=== PATIENT | female | born 2000 | race Two or more races ===

== ENCOUNTER 2024-08-05 11:09 | Outpatient (CLI) | payer MEDICAID, SELFPAY ==
[2024-08-05] VITALS (10 sets, daily range): BP systolic 124–141; BP diastolic 81–91; PULSE 75–87; RESP 18–98; TEMP 36.7; O2SAT 98; BMI 41.0
[2024-08-05 11:34] LABS: Collection Type, Urine Clean Catch
[2024-08-05 11:43] LABS: Bacteria,Urine Rare; Bilirubin,Urine Negative (Negative); Blood,Urine Trace (Negative); Clarity,Urine Clear (Clear/Hazy); Color,Urine Yellow (Lt Yel-Yel); Glucose, Urine Negative (Negative); Ketones,Urine Negative (Negative); Leukocyte Esterase,Urine Positive (Negative); Nitrite,Urine Negative (Negative); Protein,Urine 1+ (Neg - Trace); RBC,Urine 6 /hpf (0-3); Specific Gravity,Urine 1.023 (1.001-1.035); Squamous Epithelial Cell,Urine 6 /hpf (0-5); Urobilinogen,Urine Negative mg/dL (0.0-1.0); WBC,Urine 6 /hpf (0-5)
[2024-08-05 11:57] LABS: Creatinine,Random Urine 120 mg/dL (30-125); Protein Total, Random Urine 105 mg/dL (1-14)
[2024-08-05 12:07] LABS: Basophils % (Auto) 1 % (0-2.5); Eosinophils % (Auto) 0 % (0-10); Hematocrit 28.3 % (36.0-46.0); Immature Granulocytes % (Auto) 0 % (0-0); Immature Granulocytes Auto 0.03 Thou/mm3 (0.00-0.00); Lymphocytes # (Auto) 2.5 Thou/mm3 (1.0-4.8); Lymphocytes % (Auto) 31 % (10-50); Mean Corpuscular HGB Conc 30.7 g/dl (31.0-37.0); Mean Corpuscular Volume 65 fL (80-100); Monocytes # (Auto) 0.5 Thou/mm3 (0.0-0.8); Monocytes % (Auto) 6 % (0-12); Neutrophils # (Auto) 5.1 Thou/mm3 (1.8-7.7); Neutrophils % (Auto) 63 % (37-80); Nucleated Red Blood Cell % 0 /100 WBC (0); Platelet Count 221 Thou/mm3 (140-440); RDW Standard Deviation 41.2 fL (36.4-46.3); Red Blood Count 4.34 Miln/mm3 (4.00-5.20); White Blood Count 8.1 Thou/mm3 (3.6-11.0)
[2024-08-05 12:08] LABS: Hemoglobin 8.7 g/dL (12.0-16.0)
[2024-08-05 12:35] LABS: Alanine Aminotransferase < 7 U/L (10-49); Albumin, Serum 3.4 gm/dL (3.5-5.0); Albumin/Globulin Ratio 1.4 (1.2-2.2); Alkaline Phosphatase 236 U/L (46-116); Anion Gap 6 (7-16); Aspartate Amino Transferase 14 U/L (0-34); BUN/Creatinine Ratio 13 Ratio (12-20); Bilirubin,Total 0.2 mg/dL (0.3-1.2); Blood Urea Nitrogen 8 mg/dL (9-23); Calcium 8.8 mg/dL (8.3-10.6); Calcium (Corrected) 9.3 mg/dL (8.5-10.1); Carbon Dioxide 22.6 mMol/L (20.0-31.0); Chloride 108 mMol/L (98-107); Creatinine (Component) 0.6 mg/dL (0.6-1.3); Estimated Creatinine Clearance 155.3 mL/min (>60); Globulin 2.5 gm/dL (2.3-3.5); Glucose 79 mg/dL (74-106); LDH (Lactate Dehydrogenase) 188 U/L (120-246); Osmolality,Calculated 271 (275-295); Potassium 4.1 mMol/L (3.4-5.1); Sodium 137 mMol/L (136-145); Total Protein 5.9 gm/dL (5.7-8.2); Uric Acid 5.8 mg/dL (3.1-7.8); eGFR > 60 See Note
[2024-08-05 12:58] LABS: Fibrinogen 470 mg/dL (175-375); INR 0.9 (0.9-1.3); Partial Thromboplastin Time 24.2 Seconds (22.0-36.0); Prothrombin Time 9.5 Seconds (9.0-12.2)
[2024-08-05 13:54] LABS: Path Review Blood Smear Sent to Pathologist
--- NOTE | 2024-08-05 17:11 | PD.LDPN ---
Documentation for date of: 08/05/24 OB Labor Progress Note Status status: Category l Assessment and Plan Comments: Renee is a 24yo with SIUP at 36&6wk presenting to L&D from clinic for PIH workup. She had mild range bp noted in clinic and this was first occasion in . No painful/regular ctx, no vaginal bleeding, no lof. Normal movement. She denies headache, vision changes and RUQ pain. Current : This has been uncomplicated, she has had regular OB care with her OBGYN Previous pregnancies: history of pre-eclampsia and section last . She is taking ASA 81mg PO QD. ROS negative other than what was described above. BP's: first bp (done over sweatshirt) mild range 141/91 but then 6 more bp's after that all normal 120's-130's/80's, afebrile General: well developed, well nourished, no acute distress, conversant Cardiac: normal heart rate Lungs: breathing without distress Abdomen: soft, gravid, non-tender, no rebound or guarding NST: Reactive, +accels, no decels, mod juice [place]: no regular ctx pattern Labs: Hgb 8.7 Plt 221 serum creat 0.6 AST/ALT wnl urine prot:creat 0.88 Assessment: Renee is a 24yo with SIUP at 36&6wk with no confirmed diagnosis of GHTN or pre-eclampsia at this time, given that today is first occasion of mild range bp (and all subsequent bp's normal). She has proteinuria and anemia noted with Hgb 8.7. Reassuring status. Plan: -Patient to follow up on 08/07 in triage for bp check. If she has mild range bp's at that time, she would then rule in for pre-eclampsia without severe features and since she will be 37wk, delivery would be indicated. -Return precautions: especially for persistent headache, vision changes and RUQ pain Nydia Ballard MD
== END 2024-08-05 12:55 | disposition home or self-care (01) ==
LOC: S4S1 11:14 → S4SX 11:15
PROVIDERS: Referring Provider Obstetrics & Gynecology; Visit Provider Obstetrics & Gynecology
DX: O26.893 Other specified pregnancy related conditions, third trimester (principal); R03.0 Elevated blood-pressure reading, without diagnosis of hypertension; O99.013 Anemia complicating pregnancy, third trimester; D64.9 Anemia, unspecified; O12.13 Gestational proteinuria, third trimester; Z3A.36 36 weeks gestation of pregnancy
CPT/HCPCS: 36415; 59025; 80053; 81001; 82570; 83615; 84156; 84550; 85025; 85384; 85610; 85730

== ENCOUNTER 2024-08-07 12:09 | Outpatient (CLI) | payer MEDICAID, SELFPAY ==
[2024-08-07] VITALS (7 sets, daily range): BP systolic 118–132; BP diastolic 78–85; PULSE 81–90; RESP 17–99; TEMP 36.8; BMI 40.8
== END 2024-08-07 13:30 | disposition home or self-care (01) ==
LOC: S4S1 12:10 → S4SX 12:11
PROVIDERS: PCP Obstetrics & Gynecology; Referring Provider Obstetrics & Gynecology; Visit Provider Obstetrics & Gynecology
DX: Z34.83 Encounter for supervision of other normal pregnancy, third trimester (principal); Z3A.37 37 weeks gestation of pregnancy
CPT/HCPCS: 59025

== ENCOUNTER 2024-08-12 14:51 | Outpatient (CLI) | payer MEDICAID, SELFPAY ==
[2024-08-12] VITALS (8 sets, daily range): BP systolic 136–160; BP diastolic 89–95; PULSE 75–96; RESP 17–98; TEMP 36.8
[2024-08-12] MEDS: RINGERS LACTATED 1000 ML 1,000 ML 999 ML IV (15:41)
[2024-08-12 15:47] LABS: Collection Type, Urine Clean Catch
[2024-08-12 15:59] LABS: Bilirubin,Urine Negative (Negative); Blood,Urine Trace (Negative); Clarity,Urine Turbid (Clear/Hazy); Color,Urine Yellow (Lt Yel-Yel); Glucose, Urine Negative (Negative); Ketones,Urine Negative (Negative); Leukocyte Esterase,Urine Positive (Negative); Nitrite,Urine Negative (Negative); Protein,Urine 2+ (Neg - Trace); RBC,Urine 44 /hpf (0-3); Specific Gravity,Urine 1.027 (1.001-1.035); Squamous Epithelial Cell,Urine 15 /hpf (0-5); Urobilinogen,Urine Negative mg/dL (0.0-1.0); WBC,Urine 63 /hpf (0-5)
[2024-08-12 16:15] LABS: Creatinine,Random Urine 154 mg/dL (30-125); Protein Total, Random Urine 242 mg/dL (1-14)
[2024-08-12 16:25] LABS: Fibrinogen 116 mg/dL (175-375); Partial Thromboplastin Time 20.5 Seconds (22.0-36.0); Prothrombin Time 11.2 Seconds (9.0-12.2)
[2024-08-12 16:31] LABS: Alanine Aminotransferase 11 U/L (10-49); Albumin, Serum 3.7 gm/dL (3.5-5.0); Albumin/Globulin Ratio 1.4 (1.2-2.2); Alkaline Phosphatase 243 U/L (46-116); Anion Gap 11 (7-16); Aspartate Amino Transferase 24 U/L (0-34); BUN/Creatinine Ratio 14 Ratio (12-20); Bilirubin,Total 0.3 mg/dL (0.3-1.2); Blood Urea Nitrogen 10 mg/dL (9-23); Calcium (Corrected) 9.2 mg/dL (8.5-10.1); Chloride 105 mMol/L (98-107); Creatinine (Component) 0.7 mg/dL (0.6-1.3); Globulin 2.6 gm/dL (2.3-3.5); Glucose 65 mg/dL (74-106); Osmolality,Calculated 270 (275-295); Potassium 4.2 mMol/L (3.4-5.1); Sodium 137 mMol/L (136-145); Total Protein 6.3 gm/dL (5.7-8.2); Uric Acid 6.5 mg/dL (3.1-7.8); eGFR > 60 See Note
[2024-08-12 16:48] LABS: Basophils # (Auto) 0.1 Thou/mm3 (0.0-0.2); Basophils % (Auto) 1 % (0-2.5); Eosinophils % (Auto) 0 % (0-10); Immature Granulocytes % (Auto) 1 % (0-0); Immature Granulocytes Auto 0.05 Thou/mm3 (0.00-0.00); Lymphocytes # (Auto) 2.3 Thou/mm3 (1.0-4.8); Lymphocytes % (Auto) 25 % (10-50); Mean Corpuscular HGB Conc 30.7 g/dl (31.0-37.0); Mean Corpuscular Hemoglobin 19.8 pg (25.0-35.0); Mean Corpuscular Volume 64 fL (80-100); Monocytes # (Auto) 0.5 Thou/mm3 (0.0-0.8); Monocytes % (Auto) 6 % (0-12); Neutrophils # (Auto) 6.2 Thou/mm3 (1.8-7.7); Neutrophils % (Auto) 68 % (37-80); Nucleated Red Blood Cell % 0 /100 WBC (0); Platelet Count 245 Thou/mm3 (140-440); RDW Standard Deviation 40.2 fL (36.4-46.3); Red Blood Count 4.35 Miln/mm3 (4.00-5.20); White Blood Count 9.2 Thou/mm3 (3.6-11.0)
[2024-08-12 16:55] LABS: Hemoglobin 8.6 g/dL (12.0-16.0)
--- NOTE | 2024-08-12 17:28 | PD.EVENT ---
Documentation for date of: 08/12/24 Event Note Event Note: Patient was sent over from clinic by Dr. Ladd for elevated blood pressures in clinic, rule out preeclampsia. In labor and delivery her blood pressures were largely 130s to 140s over 80s to low 90s. All PIH labs were normal. Patient had 2+ protein in her urine but also a lot of red cells and white cells. She denied headaches scotomata or right upper quadrant pain or any other signs of preeclampsia. Patient is 37-6/7 weeks . heart tones were reactive and category 1 tracing. The plan was to send the patient home to return to triage in 2 days for repeat NST and blood pressure check. She has a scheduled 10 days from now on 08/22/2024. She was given strict preeclampsia precautions before discharge by the OB finished cigar maker. All labs, heart tracing, and vital signs were reviewed by myself.
[2024-08-12 17:44] LABS: Fibrinogen 470 mg/dL (175-375); INR 0.9 (0.9-1.3); Partial Thromboplastin Time 24.4 Seconds (22.0-36.0); Prothrombin Time 9.6 Seconds (9.0-12.2)
== END 2024-08-12 17:30 | disposition home or self-care (01) ==
LOC: S4S1 14:52 → S4SX 14:52
PROVIDERS: Referring Provider Obstetrics & Gynecology; Visit Provider Obstetrics & Gynecology
DX: Z34.83 Encounter for supervision of other normal pregnancy, third trimester (principal); Z36.89 Encounter for other specified antenatal screening; Z3A.37 37 weeks gestation of pregnancy
CPT/HCPCS: 36415; 80053; 81001; 82570; 84156; 84550; 85025; 85384; 85610; 85730; J7120

== ENCOUNTER 2024-08-14 11:09 | Inpatient (IN) | payer MEDICAID, SELFPAY ==
[2024-08-14] VITALS (71 sets, daily range): BP systolic 112–180; BP diastolic 82–111; PULSE 68–105; RESP 13–22; TEMP 36.4–37.2; O2SAT 95–100; BMI 41.0
[2024-08-14 13:08] LABS: Collection Type, Urine Clean Catch
--- NOTE | 2024-08-14 13:08 | PD.LDHP ---
Documentation for date of: 08/14/24 OB Labor/Induct. HPI History of Present Illness : 3 Term pregnancies: 1 pregnancies: 0 Living children: 1 History of Abortions: Spontaneous and Elective: 1 History of sections: Yes History of : No History of present illness: 24 y/o @ 38w1d, here for a repeat low-transverse for preeclampsia without severe features. Patient was seen on the in the clinic where she was found to have elevated blood pressure and was sent to L&D for possible . The on-call provider was informed. However patient was not delivered as preeclampsia labs were within normal limits and the patient was asymptomatic. Of note patient was also sent a week prior for preeclampsia evaluation for elevated blood pressure. I had a discussion with the patient today detailing the necessity to be delivered at 37 weeks or beyond on her diagnosis of preeclampsia without severe features. Patient has a history of preeclampsia in her previous delivery and was delivered at 37. Today patient is asymptomatic as per headaches, blurry vision, epigastric pain. History of Present Dating criteria: LMP confirmed by 1st trimester US Labs Narrative: NIPT within normal limits Glucose tolerance test normal Preeclampsia labs within normal limit proteinuria exists random total urine protein 334 Past Medical History Surgical History SURGICAL: Positive Section Meds Home Medications and Allergies Home Medications ?Medication ?Instructions ?Recorded ?Confirmed ?Type aspirin 81 mg capsule 81 mg PO QDAY 08/05/24 08/12/24 History vits no.126-ferrous fum 1 tab PO 1XD 08/05/24 08/12/24 History 28 mg iron-folic acid 800 mcg tablet (Classic ) Allergies Allergy/AdvReac Type Severity Reaction Status Date / Time No Known Allergies Allergy Verified 08/14/24 15:52 OB Exam Physical Exam Vital signs: Pulse BP Pulse Ox 70 145/95 H 99 08/14/24 13:05 08/14/24 13:05 08/14/24 13:04 Constitutional Constitutional: no acute distress Routine HEENT Exam Head: Present normocephalic and atraumatic Eye: Present EOMI and PERRL ENT: Present mucous membranes moist Routine Neck Exam Neck: Present supple and trachea midline Routine Cardiovascular Exam Cardiovascular: Present RRR Routine Abdominal Exam Abdominal: Present soft and normoactive bowel sounds Detailed Labor and Delivery Exam Comments: Category 1 heart tone Occasional contractions Routine Extremities Exam Extremities: Present full ROM Routine Skin Exam Skin: Present intact, dry and warm Routine Neurological Exam Neurological: Present alert, oriented X3 and CN II-XII intact Routine Psychiatric Exam Psychiatric: Present normal affect and normal thought process OB Results Labs 08/14/24 11:22 08/14/24 11:22 Impressions Impression: 24-year-old 3 para 1-0-1-1 at 38 weeks and 1 day admitted for repeat low-transverse Preeclampsia with without severe features Blood pressure earlier this week elevated, blood pressure today elevated in mild ranges GTT within normal limits Previous x 1 for preeclampsia at 37 weeks Anatomy within normal, breech presentation, posterior placenta no previa OB Assessment & Plan Additional Plan Additional Plan Comment: Repeat low-transverse Hemoglobin starting is 9, 1 unit of blood transfusion ordered preop Preeclampsia without severe features, Methergine will be avoided in case of hemorrhage Antibiotic prophylaxis DVT prophylaxis
[2024-08-14 13:12] LABS: Basophils # (Auto) 0.1 Thou/mm3 (0.0-0.2); Basophils % (Auto) 1 % (0-2.5); Eosinophils % (Auto) 0 % (0-10); Hematocrit 29.4 % (36.0-46.0); Immature Granulocytes % (Auto) 1 % (0-0); Immature Granulocytes Auto 0.04 Thou/mm3 (0.00-0.00); Lymphocytes # (Auto) 2.2 Thou/mm3 (1.0-4.8); Lymphocytes % (Auto) 28 % (10-50); Mean Corpuscular HGB Conc 30.6 g/dl (31.0-37.0); Mean Corpuscular Hemoglobin 19.6 pg (25.0-35.0); Mean Corpuscular Volume 64 fL (80-100); Monocytes # (Auto) 0.4 Thou/mm3 (0.0-0.8); Monocytes % (Auto) 5 % (0-12); Neutrophils # (Auto) 5.2 Thou/mm3 (1.8-7.7); Neutrophils % (Auto) 66 % (37-80); Nucleated Red Blood Cell % 0 /100 WBC (0); Platelet Count 245 Thou/mm3 (140-440); RDW Standard Deviation 39.8 fL (36.4-46.3); White Blood Count 7.8 Thou/mm3 (3.6-11.0)
[2024-08-14 13:19] LABS: Bilirubin,Urine Negative (Negative); Blood,Urine 1+ (Negative); Clarity,Urine Turbid (Clear/Hazy); Color,Urine Yellow (Lt Yel-Yel); Glucose, Urine Negative (Negative); Ketones,Urine Negative (Negative); Leukocyte Esterase,Urine Positive (Negative); Nitrite,Urine Negative (Negative); PH,Urine 6.5 (5.0-7.0); Protein,Urine 3+ (Neg - Trace); RBC,Urine 183 /hpf (0-3); Specific Gravity,Urine 1.024 (1.001-1.035); Squamous Epithelial Cell,Urine 8 /hpf (0-5); Urobilinogen,Urine Negative mg/dL (0.0-1.0); WBC,Urine 31 /hpf (0-5)
[2024-08-14 13:22] LABS: Creatinine,Random Urine 205 mg/dL (30-125)
[2024-08-14 13:25] LABS: Protein Total, Random Urine 334 mg/dL (1-14)
[2024-08-14 13:41] LABS: Fibrinogen 455 mg/dL (175-375); INR 0.9 (0.9-1.3); Partial Thromboplastin Time 24.1 Seconds (22.0-36.0); Prothrombin Time 9.8 Seconds (9.0-12.2)
[2024-08-14 13:42] LABS: Alanine Aminotransferase 12 U/L (10-49); Albumin, Serum 3.6 gm/dL (3.5-5.0); Albumin/Globulin Ratio 1.5 (1.2-2.2); Alkaline Phosphatase 236 U/L (46-116); Anion Gap 9 (7-16); Aspartate Amino Transferase 17 U/L (0-34); BUN/Creatinine Ratio 15 Ratio (12-20); Bilirubin,Total 0.3 mg/dL (0.3-1.2); Blood Urea Nitrogen 9 mg/dL (9-23); Calcium 8.4 mg/dL (8.3-10.6); Calcium (Corrected) 8.7 mg/dL (8.5-10.1); Carbon Dioxide 21.8 mMol/L (20.0-31.0); Chloride 106 mMol/L (98-107); Creatinine (Component) 0.6 mg/dL (0.6-1.3); Estimated Creatinine Clearance 155.3 mL/min (>60); Globulin 2.4 gm/dL (2.3-3.5); Glucose 67 mg/dL (74-106); Osmolality,Calculated 270 (275-295); Sodium 137 mMol/L (136-145); Uric Acid 6.8 mg/dL (3.1-7.8); eGFR > 60 See Note
[2024-08-14] MEDS: RINGERS LACTATED 1000 ML 1,000 ML 100 ML IV (13:42)
[2024-08-14 13:49] LABS: Syphilis Nonreactive (Nonreactive)
[2024-08-14] MEDS: FAMOTIDINE INJ 10 MG/ML VIAL 2 ML 20 MG IV (15:28)
[2024-08-14] MEDS: CITRIC ACID/SODIUM CITR 15 ML UDC (BICITRA) 30 ML PO (15:28)
[2024-08-14] MEDS: ceFAZolin/D5W 2 GM IV 2 GM/100 ML BAG IV (15:28)
[2024-08-14] MEDS: ONDANSETRON INJ 2 MG/ML INJ 2 ML 4 MG IV (18:33)
[2024-08-14] MEDS: OXYTOCIN in NS 20 units 20 UNIT/1,000 ML BAG 125 UNIT IV (20:45)
[2024-08-14 23:00] LABS: Basophils % (Auto) 0 % (0-2.5); Eosinophils % (Auto) 0 % (0-10); Hematocrit 36.3 % (36.0-46.0); Hemoglobin 11.3 g/dL (12.0-16.0); Immature Granulocytes % (Auto) 0 % (0-0); Immature Granulocytes Auto 0.06 Thou/mm3 (0.00-0.00); Lymphocytes # (Auto) 1.2 Thou/mm3 (1.0-4.8); Lymphocytes % (Auto) 8 % (10-50); Mean Corpuscular HGB Conc 31.1 g/dl (31.0-37.0); Mean Corpuscular Hemoglobin 20.7 pg (25.0-35.0); Mean Corpuscular Volume 67 fL (80-100); Monocytes # (Auto) 0.2 Thou/mm3 (0.0-0.8); Monocytes % (Auto) 2 % (0-12); Neutrophils % (Auto) 90 % (37-80); Nucleated Red Blood Cell % 0 /100 WBC (0); Platelet Count 221 Thou/mm3 (140-440); Red Blood Count 5.46 Miln/mm3 (4.00-5.20); White Blood Count 15.5 Thou/mm3 (3.6-11.0)
[2024-08-15 03:38] LABS: Path Review Blood Smear Sent to Pathologist
[2024-08-15 04:25] VITALS: BP 141/81; PULSE 76; RESP 18; TEMP 37.1; O2SAT 95
[2024-08-15 08:00] VITALS: BP 141/93; PULSE 88; RESP 18; TEMP 36.6; O2SAT 97
[2024-08-15 12:00] VITALS: BP 127/85; PULSE 84; RESP 18; TEMP 36.9; O2SAT 97
--- NOTE | 2024-08-15 12:37 | ESPR_ITS ---
Subjective Subjective Interval history: [place] is doing well, denied any vagianl bleeding , apin is wellcontroled , ad been ambulating , tolerating diet , no nausea vomitting. Exam Vital Signs Temp Pulse Resp BP Pulse Ox O2 Del Method 97.8 F 88 18 141/93 H 97 Room Air 08/15/24 08:00 08/15/24 08:00 08/15/24 08:00 08/15/24 08:00 08/15/24 08:00 08/15/24 08:00 Constitutional Constitutional: no acute distress Routine HEENT Exam Head: Present normocephalic and atraumatic Eye: Present EOMI and PERRL ENT: Present mucous membranes moist Routine Neck Exam Neck: Present supple and trachea midline Routine Respiratory Exam Respiratory: Present chest non-tender, lungs clear, normal breath sounds and no resp distress Routine Cardiovascular Exam Cardiovascular: Present RRR Routine Abdominal Exam Abdominal: Present soft and normoactive bowel sounds Routine Extremities Exam Extremities: Present full ROM Routine Skin Exam Skin: Present intact, dry and warm Routine Neurological Exam Neurological: Present alert, oriented X3 and CN II-XII intact Routine Psychiatric Exam Psychiatric: Present normal affect and normal thought process Objective Labs 08/14/24 22:22 08/14/24 11:22 Labs: Laboratory Results - last 24 hr 08/14/24 08/14/24 08/14/24 11:22 12:00 12:40 WBC 7.8 RBC 4.60 Hgb 9.0 L Hct 29.4 L MCV 64 L MCH 19.6 L MCHC 30.6 L RDW Std Deviation 39.8 Plt Count 245 Neut % (Auto) 66 Lymph % (Auto) 28 [place] % (Auto) 5 Eos % (Auto) 0 Baso % (Auto) 1 Neut # (Auto) 5.2 Lymph # (Auto) 2.2 [place] # (Auto) 0.4 Eos # (Auto) 0.0 Baso # (Auto) 0.1 Immature Gran # (Auto) 0.04 H Absolute Nucleated RBC 0.00 Immature Gran % 1 H Nucleated RBC % 0 Smear Path Review PT 9.8 INR 0.9 APTT 24.1 Fibrinogen 455 H Sodium 137 Potassium 4.0 Chloride 106 Carbon Dioxide 21.8 Anion Gap 9 BUN 9 Creatinine 0.6 Estim Creat Clear Calc 155.3 eGFR > 60 BUN/Creatinine Ratio 15 Glucose 67 L Calculated Osmolality 270 L Uric Acid 6.8 Calcium 8.4 Corrected Calcium 8.7 Total Bilirubin 0.3 AST 17 ALT 12 Alkaline Phosphatase 236 H Total Protein 6.0 Albumin 3.6 Globulin 2.4 Albumin/Globulin Ratio 1.5 Ur Collection Type Clean Catch Urine Color Yellow Urine Clarity Turbid A Urine pH 6.5 Ur Specific [place] 1.024 Urine Protein 3+ A Urine Glucose (UA) Negative Urine Ketones Negative Urine Blood 1+ A Urine Nitrite Negative Urine Bilirubin Negative Urine Urobilinogen (Auto) Negative Ur Leukocyte Esterase Positive Urine RBC 183 H Urine WBC 31 H Ur Squamous Epith Cells 8 H Urine Bacteria None Ur Random Creatinine 205 H U Random Total Protein 334 H Syphilis Serology Nonreactive Blood Type O Positive Antibody Screen NEGATIVE Crossmatch See Detail Blood Bank Wristband ID Yes 08/14/24 22:22 WBC 15.5 H D RBC 5.46 H Hgb 11.3 L D Hct 36.3 MCV 67 L MCH 20.7 L MCHC 31.1 RDW Std Deviation 47.0 H Plt Count 221 Neut % (Auto) 90 H Lymph % (Auto) 8 L [place] % (Auto) 2 Eos % (Auto) 0 Baso % (Auto) 0 Neut # (Auto) 14.0 H Lymph # (Auto) 1.2 [place] # (Auto) 0.2 Eos # (Auto) 0.0 Baso # (Auto) 0.0 Immature Gran # (Auto) 0.06 H Absolute Nucleated RBC 0.00 Immature Gran % 0 Nucleated RBC % 0 Smear Path Review Sent to Pathologist PT INR APTT Fibrinogen Sodium Potassium Chloride Carbon Dioxide Anion Gap BUN Creatinine Estim Creat Clear Calc eGFR BUN/Creatinine Ratio Glucose Calculated Osmolality Uric Acid Calcium Corrected Calcium Total Bilirubin AST ALT Alkaline Phosphatase Total Protein Albumin Globulin Albumin/Globulin Ratio Ur Collection Type Urine Color Urine Clarity Urine pH Ur Specific [place] Urine Protein Urine Glucose (UA) Urine Ketones Urine Blood Urine Nitrite Urine Bilirubin Urine Urobilinogen (Auto) Ur Leukocyte Esterase Urine RBC Urine WBC Ur Squamous Epith Cells Urine Bacteria Ur Random Creatinine U Random Total Protein Syphilis Serology Blood Type Antibody Screen Crossmatch Blood Bank Wristband ID Assessment & Plan Assessment Comment Assessment comment: 24 y/o p2, had a csection yesterday , POD #1 VSS Hb 11.3 > given 1 unit of PRBC for Preop Hb 9 All PO milestones met Plan Comment Plan Comment: cont PO care Time Spent With Patient Time: Total time spent is greater than 50% in coordination of care (as documented) at patient's floor/unit and/or counseling patient:
--- NOTE | 2024-08-15 12:40 | PD.LDDELS ---
Data (Smith) Data Hx Section: Yes : 3 Para: 1 Term: 1 : 0 : 1 Delivery Data (Smith) Labor Data ROM Date: 08/14/24 ROM Time: 16:22 Rupture Type: AROM Amniotic Fluid: Clear Delivery Data Labor Onset Stage 1 Date: 08/14/24 Labor Onset Stage 1 Time: 16:22 Labor Onset Stage 2 Date: 08/14/24 Labor Onset Stage 2 Time: 16:22 Delivery Date: 08/14/24 Delivery Time: 16:23 Gestational age (weeks): 38 Gestational age (days): 1 Placenta Delivery Date: 08/14/24 Placenta Delivery Time: 16:24 Delivered by: Mj Ladd Delivery nurse: Rola Davis Other staff at delivery: Nursery Nurse Other staff at delivery: Shwetha Kunz Delivery Method Delivery: Delivery Type: Repeat Anesthesia Type Primary Anesthesia: Spinal Placenta Placenta Delivery: Manual EBL Estimated blood loss (ml): 300 Complications Complications: none Data (Smith) Data Gender: Female Weight Grams: 2625 1 Minute Total: 9 5 Minute Total: 9
--- NOTE | 2024-08-15 12:41 | ESOP_ITS ---
Operative Note - GUIDE Procedure Date of procedure: 08/14/24 Procedure Performed: Repeat Low transverse C section Indication: preclampsia without severe features Previous Csection Pre-Op diagnosis: same Post-Op diagnosis: same Anesthesia type: Spinal Procedure description: Informed consent was obtained and the patient was taken to the operating room.? Identity was confirmed by double identifiers and she was placed on the operating table.The abdomen and perineum were prepped in the usual sterile fashion and a Perez catheter was placed to continuous drainage.? Sterile drapes were applied.??A Pfannenstiel skin incision was made with a scalpel and carried to the subcutaneous fat up to the rectus fascia.? The rectus fascia was incised on either side of the midline and the incisions were extended bilaterally.? The fascia was gently dissected off the ventral surface of the rectus muscle both superiorly and inferiorly. extensive adhesiolysis was done between musle , peritoneum. Carefully a peritioneal window created hysterotomy incision made and extended bluntly with finger. Rupture of membranes revealed clear fluid. The baby was found vertex presentation and was delivered via vertex. The umbilical cord , was doubly clamped, divided and the infant was handed over to the waiting team. The placenta delivered by controlled cord traction . The interior of the uterus was now thorougly cleaned of all blood and debris and membranes.?The? hysterotomy was closed using 0 vicryl suture in double layers. Once the repair was completed the hysterotomy was inspected, was noted to be adequately hemostatic. The rectus fascia was repaired using Vicryl 0 in a running fashion.? The subcutaneous layer was now, approximated with 3-0 vicryl in double layers.? All bleeding points were cauterized using the Bovie.?The skin was closed using 4-0 Monocryl in a subcuticular fashion.? The skin was cleaned and a sterile dressing was applied. The patient was now undraped, the abdomen and back were thoroughly cleaned and she was now transferred to the [facility] in a stable Estimated blood loss (ml): 300 Surgical staff Operation Date: 08/22/24 12:45 <No data on this case meets the specified criteria> Diagnosis Problem List Completed Was Problem List Reviewed/Reconciled?: Yes
[2024-08-15] MEDS: IBUPROFEN TAB 400 MG TABLET 800 MG PO (15:44)
[2024-08-15 16:00] VITALS: BP 130/91; PULSE 89; RESP 18; TEMP 36.9; O2SAT 98
[2024-08-15] MEDS: SIMETHICONE 80 MG CHEW PO (16:00)
[2024-08-15] MEDS: Milk Of Magnesia Susp 30 ML UDC PO (16:00)
--- NOTE | 2024-08-15 19:11 | PC.NURSE ---
08/15/24 1700 : RN Removed wound dressing. Wound is asymptomatic, clean/dry, open to air. Pt. educated on wound care.
[2024-08-15 19:15] VITALS: BP 135/87; PULSE 87; RESP 16; TEMP 36.7; O2SAT 98
--- NOTE | 2024-08-15 22:18 | PD.LDPPPRG ---
Subjective Subjective Interval history: POD#1 s/p repeat LTCS and also elevated BP during Exam Vital Signs Temp Pulse Resp BP Pulse Ox O2 Del Method 98.0 F 87 16 135/87 H 98 Room Air 08/15/24 19:15 08/15/24 19:15 08/15/24 19:15 08/15/24 19:15 08/15/24 19:15 08/15/24 19:15 Narrative Exam doing well\Passed flatus, breast feeding , good pain control, no dizziness , no complaints , bleeding is minimal , no headache Constitutional Constitutional: no acute distress Routine Respiratory Exam Respiratory: Present chest non-tender, lungs clear, normal breath sounds, no resp distress and CTA bilaterally Routine Cardiovascular Exam Cardiovascular: Present RRR Routine Abdominal Exam Abdominal: Present soft and normoactive bowel sounds Comments: incision is C, D and intact and appropriate tenderness , dressing clean and dry soft abdomen Routine Extremities Exam Extremities: Present full ROM and pulses intact Comments: no calf tenderness Routine Skin Exam Skin: Present intact and normal turgor Routine Neurological Exam Neurological: Present alert, oriented X3, CN II-XII intact, normal reflexes, moving all extremities and vision grossly intact Routine Psychiatric Exam Psychiatric: Present normal affect, normal thought process, cooperative, good insight and good judgment Objective Labs 08/14/24 22:22 08/14/24 11:22 Labs: Laboratory Results - last 24 hr 08/14/24 22:22 WBC 15.5 H D RBC 5.46 H Hgb 11.3 L D Hct 36.3 MCV 67 L MCH 20.7 L MCHC 31.1 RDW Std Deviation 47.0 H Plt Count 221 Neut % (Auto) 90 H Lymph % (Auto) 8 L [place] % (Auto) 2 Eos % (Auto) 0 Baso % (Auto) 0 Neut # (Auto) 14.0 H Lymph # (Auto) 1.2 [place] # (Auto) 0.2 Eos # (Auto) 0.0 Baso # (Auto) 0.0 Immature Gran # (Auto) 0.06 H Absolute Nucleated RBC 0.00 Immature Gran % 0 Nucleated RBC % 0 Smear Path Review Sent to Pathologist Impressions Impression: POD #1 doing well continue current management on regular diet Assessment & Plan Assessment Comment Assessment comment: POD #1 s/p repeat LTCS , doing well /care is appropriate / likely discharge in am Time Spent With Patient Time: Total time spent is greater than 50% in coordination of care (as documented) at patient's floor/unit and/or counseling patient:
[2024-08-15 23:30] VITALS: BP 142/90; BP 153/95; PULSE 84; RESP 16; TEMP 36.7; O2SAT 97
[2024-08-16 03:05] VITALS: BP 144/102; PULSE 78; RESP 16; TEMP 36.8; O2SAT 98
[2024-08-16] MEDS: IBUPROFEN TAB 400 MG TABLET 800 MG PO (03:53)
--- NOTE | 2024-08-16 07:45 | PD.LDPPPRG ---
Subjective Subjective Interval history: Patient is a 24-year-old G [id number] postop day #1 status post repeat by Dr. Ladd. Patient is resting comfortably in bed this morning. She denies headaches, right upper quadrant pain, or shortness of breath. She denies changes in vision. She is swollen. But thinks this is getting better. Her blood pressures have been elevated in the 140-150s 90-100. No meds. She states the last time they took it she was in pain. She denies any heavy vaginal bleeding. She is breast-feeding the baby is laying next to her in bed. The father the baby is asleep. Exam Vital Signs Temp Pulse Resp BP Pulse Ox O2 Del Method 98.3 F 78 16 144/102 H 98 Room Air 08/16/24 03:05 08/16/24 03:05 08/16/24 03:05 08/16/24 03:05 08/16/24 03:05 08/16/24 03:05 Narrative Exam Patient is alert and oriented x 3 wearing her own pajamas. Resting comfortably with make-up on. Abdomen soft nontender, nondistended ,fundus is firm. Incision is clean dry and intact. Extremities show 2+ edema. No erythema. Objective Labs 08/14/24 22:22 08/14/24 11:22 Impressions Impression: Patient preop hemoglobin was 8.6. A redraw six hours later was 9. On post op day #1 it was 11.2. Patient is getting more hemoconcentrated and has not been transfused. Assessment & Plan Problem List (1) Previous delivery, delivered: Problem details: Continue present management. Encourage ambulation. Encourage pain meds as needed. Status: Acute (2) Preeclampsia: Problem details: Recheck labs at this time. Ambulate to see what patient's blood pressures do. Consider Procardia as an antihypertensive medication. Status: Acute Time Spent With Patient Time: Total time spent is greater than 50% in coordination of care (as documented) at patient's floor/unit and/or counseling patient: Time with patient: less than 15 minutes
[2024-08-16 08:00] VITALS: BP 143/95; PULSE 81; RESP 16; TEMP 36.8; O2SAT 99
[2024-08-16 08:23] VITALS: BP 143/95; PULSE 81
[2024-08-16] MEDS: HYDROcodone/APAP 5/325 TABLET 1 TAB PO (08:23)
[2024-08-16] MEDS: NIFEdipine XL 30 MG TABCR PO (08:23)
[2024-08-16 08:24] LABS: Basophils % (Auto) 0 % (0-2.5); Eosinophils % (Auto) 0 % (0-10); Hematocrit 31.4 % (36.0-46.0); Hemoglobin 9.8 g/dL (12.0-16.0); Immature Granulocytes % (Auto) 1 % (0-0); Immature Granulocytes Auto 0.07 Thou/mm3 (0.00-0.00); Lymphocytes # (Auto) 3.4 Thou/mm3 (1.0-4.8); Lymphocytes % (Auto) 25 % (10-50); Mean Corpuscular HGB Conc 31.2 g/dl (31.0-37.0); Mean Corpuscular Hemoglobin 20.5 pg (25.0-35.0); Mean Corpuscular Volume 66 fL (80-100); Monocytes # (Auto) 0.6 Thou/mm3 (0.0-0.8); Monocytes % (Auto) 5 % (0-12); Neutrophils # (Auto) 9.4 Thou/mm3 (1.8-7.7); Neutrophils % (Auto) 70 % (37-80); Nucleated Red Blood Cell % 0 /100 WBC (0); Platelet Count 258 Thou/mm3 (140-440); RDW Standard Deviation 47.3 fL (36.4-46.3); Red Blood Count 4.77 Miln/mm3 (4.00-5.20); White Blood Count 13.5 Thou/mm3 (3.6-11.0)
[2024-08-16 08:34] LABS: Alanine Aminotransferase 12 U/L (10-49); Albumin, Serum 3.4 gm/dL (3.5-5.0); Albumin/Globulin Ratio 1.5 (1.2-2.2); Alkaline Phosphatase 179 U/L (46-116); Anion Gap 7 (7-16); Aspartate Amino Transferase 18 U/L (0-34); BUN/Creatinine Ratio 13 Ratio (12-20); Bilirubin,Total 0.3 mg/dL (0.3-1.2); Blood Urea Nitrogen 9 mg/dL (9-23); Calcium 8.4 mg/dL (8.3-10.6); Calcium (Corrected) 8.9 mg/dL (8.5-10.1); Carbon Dioxide 25.4 mMol/L (20.0-31.0); Chloride 108 mMol/L (98-107); Creatinine (Component) 0.7 mg/dL (0.6-1.3); Estimated Creatinine Clearance 192.6 mL/min (>60); Globulin 2.3 gm/dL (2.3-3.5); Glucose 76 mg/dL (74-106); Osmolality,Calculated 277 (275-295); Potassium 4.2 mMol/L (3.4-5.1); Sodium 140 mMol/L (136-145); Total Protein 5.7 gm/dL (5.7-8.2); eGFR > 60 See Note
--- NOTE | 2024-08-16 11:33 | ESDS_ITS ---
DS: Providers Provider Date of admission: 08/14/24 11:09 Primary care physician: Physician No Primary/Family Admitting Provider: Mj Ladd MD Attending Provider on Admission: Mj Ladd MD Consults: 08/14/24 15:55 Referral Routine Comment: Attending Provider on DC: Soha Castellon MD ([facility]) Discharging Provider: Soha Castellon MD ([facility]) Anticipated date of discharge: 08/16/24 DS: Diagnosis Discharge Diagnosis (1) Previous delivery, delivered: Status: Acute Assessment & Plan: Postop day #2 status post repeat plan to discharge home (2) Preeclampsia: Status: Acute Assessment & Plan: Procardia XL 30 mg p.o. daily started. Patient go back to [facility] for blood pressure check in 1 week. Strict preeclampsia precautions given. Patient to come back for severe headaches not responsive to Tylenol, scotomata or right upper quadrant pain or any other signs of concern. Problem List Completed Was Problem List Reviewed/Reconciled?: Yes Summary/Hosp Course Brief History: 24 y/o @ 38w1d, here for a repeat low-transverse for preeclampsia without severe features. Patient was seen on the in the clinic where she was found to have elevated blood pressure and was sent to L&D for possible . The on-call provider was informed. However patient was not delivered as preeclampsia labs were within normal limits and the patient was asymptomatic. Of note patient was also sent a week prior for preeclampsia evaluation for elevated blood pressure. I had a discussion with the patient today detailing the necessity to be delivered at 37 weeks or beyond on her diagnosis of preeclampsia without severe features. Patient has a history of preeclampsia in her previous delivery and was delivered at 37. Today patient is asymptomatic as per headaches, blurry vision, epigastric pain. Peripartum Data Delivery Method: Low Transverse Procedures: Procedures Operation Date: 08/14/24 16:06 Actual Procedure Side Surgeon p in OR Mj Ladd MD Operation Date: 08/22/24 12:45 <No data on this case meets the specified criteria> complications: none Status at Discharge Cognitive/behavioral status at discharge: Stable Functional status at discharge: independent ambulation Overall status at discharge: patient is progressing back to baseline Time Spent with Patient Time attestation: Total time spent providing and/or coordinating discharge services: Time spent: Less than 30 minutes Specific discharge activities: No tampons intercourse douching or bathtubs for 6 weeks. No heavy lifting or heavy exercise for 6 weeks. Call for fevers, heavy vaginal bleeding, signs of severe preeclampsia, signs of severe depression or fevers. Exam Vital Signs Temp Pulse Resp BP Pulse Ox O2 Del Method 98.3 F 81 16 143/95 H 99 Room Air 08/16/24 08:00 08/16/24 08:23 08/16/24 08:00 08/16/24 08:23 08/16/24 08:00 08/16/24 08:00 Narrative Exam Patient is alert and oriented x 3 in no apparent distress. Resting comfortably. Routine Abdominal Exam Abdominal: Present soft and surgical scars (Incision clean dry and intact) Comments: Fundus firm Detailed Lower Extremity Exam Hip: bilateral: swelling (+2 pedal edema bilaterally. No erythema.) Discharge Plan Plan Patient Disposition: HOME (Self Care) Disposition Comment: stable Prescriptions/Referrals Prescriptions/Med Rec: New acetaminophen [Tylenol] 325 mg Tablet 650 mg PO Q4H PRN (Reason: pain (scale score 1-3)) Qty: 60 0RF hydrocodone-acetaminophen 5-325 mg Tablet 1 tab PO Q4HR MDD 6 PRN (Reason: Patient rated pain 7 to 8) 7 Days Qty: 30 0RF ibuprofen 400 mg Tablet 800 mg PO Q8H PRN (Reason: See Comments) Qty: 60 0RF nifedipine [Procardia XL] 30 mg tablet extended release 24hr 30 mg PO QDAY Qty: 30 0RF Continued Classic 28 mg iron- 800 mcg tablet 1 tab PO 1XD aspirin 81 mg capsule 81 mg PO QDAY Referrals: No Primary/Family,Physician [Primary Care Provider] - Patient/Caregiver Discharge Instructions Discharge Activity: activity as tolerated Other Discharge Activity Instructions:: No heavy lifting intercourse tampons douching for 6 weeks no bathtubs x 6 weeks no heavy exercise or heavy lifting x 6 weeks. Other Discharge Diet Instructions: General diet Education Materials: C Section Dc, Gestational Hypertension Print Language: Amharic Activity Restrictions/Additional Instructions: Go to clinic in [address] Heredia to check your blood pressure. Stay on Procardia XL 30 p.o. daily until then. Come back to the ER for severe headaches or visual changes. Stand Alone Forms: Carmela Award Info., Patient Portal Info Letter Discharge Order Discharge Orders: Discharge (Routine); Ordered 08/16/24 Ordered By: Soha Castellon ([facility]) Planned Discharge Date 08/16/24 (2) Preeclampsia Qualifiers: Trimester: third trimester Qualified Code(s): O14.93 - Unspecified pre- eclampsia, third trimester
[2024-08-16 12:00] VITALS: BP 148/90; PULSE 86; RESP 16; TEMP 36.8; O2SAT 99
== END 2024-08-16 15:30 | disposition home or self-care (01) | DRG 540 ==
LOC: S4SX 14:52 → S4NX 15:53
PROVIDERS: Obstetrics & Gynecology; Admitting Provider Student in an Organized Health Care Education/Training Program; Visit Provider Student in an Organized Health Care Education/Training Program
PROC: 10D00Z1 Extraction of Products of Conception, Low, Open Approach (ICD-10-PCS; CPT 59514; 2024-08-14 15:30)
DX: O34.211 Maternal care for low transverse scar from previous cesarean delivery (principal); O14.04 Mild to moderate pre-eclampsia, complicating childbirth; O32.1XX0 Maternal care for breech presentation, not applicable or unspecified; Z37.0 Single live birth; Z3A.38 38 weeks gestation of pregnancy
CPT/HCPCS: 36415; 80053; 81001; 82570; 84156; 84550; 85025; 85384; 85610; 85730; 86780; 86850; 86900; 86901; 86923; J0689; J1100; J2250; J2274; J2371; J2405; J2590; J3490; J7120; P9016; A9270; J2270